=== PATIENT | female | born 1950 | race Caucasian/White ===

== ENCOUNTER 2016-07-02 16:28 | Emergency (ER) | payer MEDICARE, OTHER ==
--- NOTE | 2016-07-02 17:32 | Emergency Department Record ---
History of Present Illness - General Chief Complaint: Cough Stated Complaint: COUGH Time Seen by Provider: 07/02/16 17:31 Source: Patient Mode of Arrival: Ambulatory Limitations: No limitations - History of Present Illness Initial Comments: 66 yo female presents with cough. The onset was three days ago. She has some nasal drainage. The cough is a dry cough at this point in time. No fevers. No chills. She has tried over the counter medications without resolution. No significant sore throat. No chest pain or shortness of breath. No abdominal pain. No edema. No history of smoking or significant underlying lung disease. MD Complaint: Cough Onset/Timin -: Days(s) Consistency: Intermittent Improves With: Nothing Worsens With: Other (worse at night) Associated Symptoms: Cough, Rhinorrhea - Related Data Home Medications Medication Instructions Recorded Confirmed Last Taken Insulin Aspart [Novolog Flexpen] 2 - 6 unit SQ BID PRN 03/02/14 07/02/16 Insulin Glargine,Hum.rec.anlog 60 unit SQ QAM 03/02/14 07/02/16 07/02/16 [Lantus] Lisinopril/Hydrochlorothiazide 1 each PO QAM 03/02/14 07/02/16 07/02/16 [Zestoretic 20-25 mg Tablet] Risedronate Sodium [Actonel] 150 mg PO MONTHLY 03/02/14 07/02/16 06/05/16 Canagliflozin [Invokana] 300 mg PO QAM 07/17/14 07/02/16 07/02/16 Atorvastatin Calcium 10 mg PO DAILY 10/28/14 07/02/16 07/02/16 Naproxen [Naprosyn] 500 mg PO DAILY 10/28/14 07/02/16 05/06/15 Tramadol HCl 50 mg PO Q6H 10/28/14 07/02/16 05/06/15 Previous Rx's Medication Instructions Recorded Hydrocodone/Acetaminophen [[place] 1 tab PO Q6H PRN #15 tab 10/28/14 5mg/325mg] Azithromycin [Zithromax] 250 mg PO DAILY #6 tab 07/02/16 Benzonatate [Tessalon] 1 cap PO Q8H PRN #20 cap 07/02/16 Allergies Allergy/AdvReac Type Severity Reaction Status Date / Time cephalexin monohydrate Allergy RASH Verified 05/09/15 18:45 [From [employer]] Travel Screening - Travel/Exposure Within Last 30 Days Have you traveled within the last 30 days?: No - Travel/Exposure Within Last Year Have you traveled outside the [place] in the last year?: No - Additonal Travel Details Have you been exposed to anyone with a communicable illness?: No - Travel Symptoms Symptom Screening: None Review of Systems Constitutional: Denies: Chills, Fever, Malaise, Weakness Eyes: Denies: Eye discharge ENT: Reports: Congestion. Denies: Ear pain, Throat pain Respiratory: Reports: Cough. Denies: Dyspnea, Hemoptysis, Stridor, Wheezes Cardiovascular: Denies: Chest pain, Palpitations, Syncope Endocrine: Denies: Fatigue Gastrointestinal: Denies: Abdominal pain, Nausea, Vomiting Genitourinary: Denies: Dysuria, Urgency Musculoskeletal: Denies: Arthralgia, Back pain, Myalgia Skin: Denies: Bruising, Change in color, Rash Neurological: Denies: Confusion, Headache Psychiatric: Denies: Anxiety Hematological/Lymphatic: Denies: Blood Clots, Easy bleeding, Easy bruising, Swollen glands Past Medical History - SOCIAL HISTORY Smoking Status: Never smoker Alcohol Use: None Drug Use: None - RESPIRATORY Hx Respiratory Disorders: No - CARDIOVASCULAR Hx Cardio Disorders: Yes Hx Hypertension: Yes - NEURO Hx Neuro Disorders: No - GI Hx GI Disorders: No - Hx Genitourinary Disorders: No - ENDOCRINE Hx Endocrine Disorders: Yes Hx Diabetes: Yes - MUSCULOSKELETAL Hx Musculoskeletal Disorders: Yes Hx Arthritis: Yes (neck) - PSYCH Hx Psych Problems: No - HEMATOLOGY/ONCOLOGY Hx Hematology/Oncology Disorders: No Family Medical History Any Significant Family History?: No Hx Cancer: Mother Hx Diabetes: Mother, Brother/Sister Physical Exam - General General Appearance: Alert, Oriented x3, Cooperative, No acute distress - Head Head exam: Normal inspection - Eye Eye exam: Normal appearance, PERRL. negative: Conjunctival injection, Periorbital swelling - ENT ENT exam: Mucous membranes moist, Normal external ear exam, Normal orophraynx, TM's normal bilaterally Ear exam: Normal external inspection. negative: External canal tenderness Nasal Exam: Discharge. negative: Normal inspection, Active bleeding, Dried blood, Foreign body Mouth exam: Normal external inspection, Tongue normal Teeth exam: Normal inspection. negative: Dental caries Throat exam: Normal inspection. negative: Tonsillar erythema, Tonsillar exudate - Neck Neck exam: Normal inspection, Full ROM. negative: Lymphadenopathy, Tenderness - Respiratory Respiratory exam: Normal lung sounds bilaterally. negative: Respiratory distress, Rhonchi, Stridor, Wheezes - Cardiovascular Cardiovascular Exam: Regular rate, Normal rhythm, Normal heart sounds - Rectal Rectal exam: Deferred - exam: Deferred - Extremities Extremities exam: Normal inspection, Full ROM, Normal capillary refill. negative: Pedal edema, Tenderness - Back Back exam: Reports: Normal inspection, Full ROM. Denies: CVA tenderness (R), CVA tenderness (L), Muscle spasm, Paraspinal tenderness, Rash noted, Tenderness - Neurological Neurological exam: Alert, Normal gait, Oriented X3 - Psychiatric Psychiatric exam: Normal affect, Normal mood. negative: Agitated, Anxious - Skin Skin exam: Dry, Intact, Normal color, Warm Course Vital Signs 07/02/16 17:10 Temperature 98.2 F Pulse Rate 88 Respiratory 16 Rate Blood Pressure 139/61 Pulse Ox 97 - Reevaluation(s) Reevaluation #1: the patient's symptoms are consistent with an infectious cause most likely She is on Lisionpril. I discussed that if this becomes chronic she may need to consider that as the cause. 07/02/16 17:43 Disposition Disposition: Discharge Clinical Impression: Bronchitis Disposition: Home, Self-Care Condition: (1) Good Instructions: Acute Bronchitis (ED) Additional Instructions: Call your doctor for a recheck this week Return if you are worse, fever or any new concerns Prescriptions: Benzonatate [Tessalon] 1 cap PO Q8H PRN #20 cap PRN Reason: Cough Azithromycin [Zithromax] 250 mg PO DAILY #6 tab Forms: Patient Portal Access Time of Disposition: 17:45
[2016-07-02] MEDS ORDERED: BENZONATATE 100 MG CAPSULE PO ONE (17:39)
== END 2016-07-02 17:59 | disposition home or self-care (01) ==
LOC: ER 16:28
DX: J20.9 Acute bronchitis, unspecified (principal); I10 Essential (primary) hypertension
CPT/HCPCS: 99282

== ENCOUNTER 2018-01-10 19:48 | Emergency (ER) | payer MEDICARE, OTHER ==
[2018-01-10] MEDS ORDERED: HYDROMORPHONE HCL 2 MG/ML VIAL IVP ONE ×2 (20:06→22:23)
[2018-01-10] MEDS ORDERED: ONDANSETRON HCL IV 4 MG/2 ML VIAL IVP ONE (20:07)
--- NOTE | 2018-01-10 20:38 | Emergency Department Record ---
History of Present Illness - General Chief Complaint: Fall Injury Stated Complaint: FALL INJURY Time Seen by Provider: 01/10/18 20:04 Source: Patient, Family Mode of Arrival: Ambulatory Limitations: No limitations - History of Present Illness Initial Comments: pts pit bulls ran into her , knocking her down and injuring both knees, the left worse then the right. she denies any other injury. the left knee was hyperextended and is extremely painful MD Complaint: Fall Onset/Timin -: Hour(s) When Fall Occurred: Just prior to arrival Location - Extremities: Left: Knee, Right: Knee Quality: Aching Context: Tripped/slipped Associated Symptoms: Unable to walk - [place] Coma Scale Eye Response: (4) Open spontaneously Motor Response: (6) Obeys commands Verbal Response: (5) Oriented Edda Total: 15 - Related Data Allergies Allergy/AdvReac Type Severity Reaction Status Date / Time cephalexin monohydrate Allergy RASH Verified 05/09/15 18:45 [From [employer]] Travel Screening - Travel/Exposure Within Last 30 Days Have you traveled within the last 30 days?: No Review of Systems Reviewed: No additional complaints except as noted below Constitutional: Reports: As per HPI. Denies: Chills, Fever, Malaise, Night sweats, Weakness, Weight change Eyes: Reports: As per HPI. Denies: Eye discharge, Eye pain, Photophobia, Vision change ENT: Reports: As per HPI. Denies: Congestion, Dental pain, Ear pain, Epistaxis , Hearing loss, Throat pain Respiratory: Reports: As per HPI. Denies: Cough, Dyspnea, Hemoptysis, Stridor, Wheezes Cardiovascular: Reports: As per HPI. Denies: Arrhythmia, Chest pain, Dyspnea on exertion, Edema, Murmurs, Orthopnea, Palpitations, Paroxysmal nocturnal dyspnea, Rheumatic Fever, Syncope Endocrine: Reports: As per HPI. Denies: Fatigue, Heat or cold intolerance, Polydipsia, Polyuria Gastrointestinal: Reports: As per HPI. Denies: Abdominal pain, Constipation, Diarrhea, Hematemesis, Hematochezia, Melena, Nausea, Vomiting Genitourinary: Reports: As per HPI. Denies: Abnormal menses, Discharge, Dyspareunia, Dysuria, Frequency, Hematuria, Incontinence, Retention, Urgency Musculoskeletal: Reports: As per HPI. Denies: Arthralgia, Back pain, Gout, Joint swelling, Myalgia, Neck pain Skin: Reports: As per HPI. Denies: Bruising, Change in color, Change in hair/ nails, Lesions, Pruritus, Rash Neurological: Reports: As per HPI. Denies: Abnormal gait, Confusion, Headache, Numbness, Paresthesias, Seizure, Tingling, Tremors, Vertigo, Weakness Psychiatric: Reports: As per HPI. Denies: Anxiety, Auditory hallucinations, Depression, Homicidal thoughts, Suicidal thoughts, Visual hallucinations Hematological/Lymphatic: Reports: As per HPI. Denies: Anemia, Blood Clots, Easy bleeding, Easy bruising, Swollen glands Past Medical History - SOCIAL HISTORY Smoking Status: Never smoker Alcohol Use: None Drug Use: None - RESPIRATORY Hx Respiratory Disorders: No - CARDIOVASCULAR Hx Cardio Disorders: Yes Hx Hypertension: Yes - NEURO Hx Neuro Disorders: No - GI Hx GI Disorders: No - Hx Genitourinary Disorders: No - ENDOCRINE Hx Endocrine Disorders: Yes Hx Diabetes: Yes - MUSCULOSKELETAL Hx Musculoskeletal Disorders: Yes Hx Arthritis: Yes (neck) - PSYCH Hx Psych Problems: No - HEMATOLOGY/ONCOLOGY Hx Hematology/Oncology Disorders: No Family Medical History Any Significant Family History?: Yes Hx Cancer: Mother Hx Diabetes: Mother, Brother/Sister Physical Exam - General General Appearance: Alert, Oriented x3, Cooperative, Moderate distress - Head Head exam: Normal inspection - Eye Eye exam: Normal appearance, PERRL, EOMI Pupils: Normal accommodation - ENT ENT exam: Normal exam, Mucous membranes moist, Normal external ear exam, Normal orophraynx Ear exam: Normal external inspection. negative: External canal tenderness Nasal Exam: Normal inspection. negative: Discharge, Sinus tenderness Mouth exam: Normal external inspection, Tongue normal Teeth exam: Normal inspection. negative: Dental caries Throat exam: Normal inspection. negative: Tonsillar erythema, Tonsillar exudate - Neck Neck exam: Normal inspection, Full ROM. negative: Tenderness - Respiratory Respiratory exam: Normal lung sounds bilaterally. negative: Respiratory distress - Cardiovascular Cardiovascular Exam: Regular rate, Normal rhythm, Normal heart sounds - GI/Abdominal GI/Abdominal exam: Soft, Normal bowel sounds. negative: Tenderness - Rectal Rectal exam: Deferred - exam: Deferred - Extremities Extremities exam: Normal capillary refill, Tenderness (bilateral knees, l worse then right). negative: Normal inspection, Full ROM - Back Back exam: Reports: Normal inspection, Full ROM. Denies: Muscle spasm, Rash noted, Tenderness - Neurological Neurological exam: Alert, CN II-XII intact, Normal gait, Oriented X3 - Psychiatric Psychiatric exam: Normal affect, Normal mood - Skin Skin exam: Dry, Intact, Normal color, Warm Course Vital Signs 01/10/18 19:53 Pulse Rate [ 92 H Pulse Ox Probe] Respiratory 24 Rate Blood Pressure 128/69 [Left Arm] Pulse Ox 99 Disposition Disposition: Transfer Clinical Impression: Tibia/fibula fracture Qualifiers: Encounter type: initial encounter Fracture type: closed Laterality: left Qualified Code(s): S82.202A - Unspecified fracture of shaft of left tibia, initial encounter for closed fracture; S82.402A - Unspecified fracture of shaft of left fibula, initial encounter for closed fracture Disposition: Acute Care Hospital Transfer Transfer To: [facility] Reason For Transfer: needs orthopedic surgeon Accepting Physician: shelton brice Time Discussed w/Accepting Physician: 22:06 Forms: Patient Portal Access Quality - Quality Measures Quality Measures: N/A - Blood Pressure Screening Does Patient Have Any of the Following: No Blood Pressure Classification: Pre-Hypertensive BP Reading Systolic Measurement: 128 Diastolic Measurement: 69 Screening for High Blood Pressure: < Pre-Hypertensive BP, F/U Documented > [ G8950] Pre-Hypertensive Follow-up Interventions: Follow-up with rescreen every year.
== END 2018-01-10 23:00 | disposition short-term general hospital (02) ==
LOC: ER 19:48
DX: S82.202A Unspecified fracture of shaft of left tibia, initial encounter for closed fracture (principal); S82.402A Unspecified fracture of shaft of left fibula, initial encounter for closed fracture; W18.31XA Fall on same level due to stepping on an object, initial encounter; Y93.9 Activity, unspecified
CPT/HCPCS: 99285 ×2; 96376; 96374; 96375; 73564 ×2; J2405; J1170

== ENCOUNTER 2018-03-06 19:46 | Emergency (ER) | payer MEDICARE, OTHER ==
[2018-03-06] MEDS: 0.9 % SODIUM CHLORIDE 1,000 ML BAG IV ONE ×2 (20:05→21:43)
[2018-03-06] MEDS: ONDANSETRON HCL IV 4 MG/2 ML VIAL IVP ONE (20:05)
--- NOTE | 2018-03-06 20:06 | Emergency Department Record ---
History of Present Illness - General Chief complaint: Nausea, Vomiting, Diarrhea Stated complaint: VOMITING/DIARRHEA Time Seen by Provider: 03/06/18 20:00 Source: Patient Mode of Arrival: Ambulatory Limitations: No limitations - History of Present Illness Initial comments: 68 yo female presents with nausea, vomiting, and diarrhea. The onset was two hours ago. No fever. No pain now. No blood in either vomit or the diarrhea. She had a [employer] hamburger earlier. No other definite sick contacts. No other recent illnesses the last few days. Dr Bardales is her doctor. MD complaint: Diarrhea, Nausea, Vomiting Onset/Timin -: Hour(s) (2) Description of Vomiting: Watery Description of Diarrhea: Water Location: Other Radiation: None Severity: Mild Quality: Cramping Consistency: Intermittent Improves with: None Worsens with: Eating Associated Symptoms: Loss of appetite, Nausea/vomiting, Other (Diarrhea) - Related Data Previous Rx's Medication Instructions Recorded Ondansetron [Zofran Odt] 4 mg PO Q8H #12 tab.rapdis 03/06/18 Allergies Allergy/AdvReac Type Severity Reaction Status Date / Time cephalexin monohydrate Allergy RASH Verified 05/09/15 18:45 [From [employer]] Travel Screening - Travel/Exposure Within Last 30 Days Have you traveled within the last 30 days?: No Review of Systems Constitutional: Denies: Chills, Fever, Weakness Eyes: Denies: Eye discharge, Eye pain, Vision change ENT: Denies: Congestion, Throat pain Respiratory: Denies: Cough, Dyspnea, Hemoptysis, Wheezes Cardiovascular: Denies: Chest pain, Palpitations, Syncope Endocrine: Denies: Fatigue Gastrointestinal: Reports: Diarrhea, Nausea, Vomiting. Denies: Hematemesis, Hematochezia Genitourinary: Denies: Dysuria, Urgency Musculoskeletal: Denies: Arthralgia, Back pain, Myalgia Skin: Denies: Bruising, Change in color, Rash Neurological: Denies: Confusion Psychiatric: Denies: Anxiety Hematological/Lymphatic: Denies: Blood Clots, Easy bleeding, Easy bruising, Swollen glands Past Medical History - SOCIAL HISTORY Smoking Status: Never smoker Alcohol Use: None Drug Use: None - RESPIRATORY Hx Respiratory Disorders: No - CARDIOVASCULAR Hx Cardio Disorders: Yes Hx Hypertension: Yes - NEURO Hx Neuro Disorders: No - GI Hx GI Disorders: No - Hx Genitourinary Disorders: No - ENDOCRINE Hx Endocrine Disorders: Yes Hx Diabetes: Yes - MUSCULOSKELETAL Hx Musculoskeletal Disorders: Yes Hx Arthritis: Yes (neck) - PSYCH Hx Psych Problems: No - HEMATOLOGY/ONCOLOGY Hx Hematology/Oncology Disorders: No Family Medical History Any Significant Family History?: Yes Hx Cancer: Mother Hx Diabetes: Mother, Brother/Sister Physical Exam - General General Appearance: Alert, Oriented x3, Cooperative, No acute distress Limitations: No limitations - Head Head exam: Normal inspection - Eye Eye exam: Normal appearance. negative: Conjunctival injection, Scleral icterus - ENT ENT exam: Normal exam, Mucous membranes moist Ear exam: Normal external inspection Nasal Exam: Normal inspection Mouth exam: Normal external inspection - Neck Neck exam: Normal inspection - Respiratory Respiratory exam: Normal lung sounds bilaterally. negative: Respiratory distress - Cardiovascular Cardiovascular Exam: Regular rate, Normal rhythm, Normal heart sounds - GI/Abdominal GI/Abdominal exam: Soft. negative: Distended, Guarding, Rebound, Rigid, Tenderness - Rectal Rectal exam: Deferred - exam: Deferred - Extremities Extremities exam: Normal inspection. negative: Tenderness - Back Back exam: Denies: CVA tenderness (R), CVA tenderness (L) - Neurological Neurological exam: Alert, Oriented X3 - Psychiatric Psychiatric exam: Normal affect, Normal mood - Skin Skin exam: Dry, Intact, Normal color, Warm Course Vital Signs 03/06/18 19:50 Temperature 98.3 F Pulse Rate 131 H Respiratory 20 Rate Blood Pressure 122/66 Pulse Ox 95 - Reevaluation(s) Reevaluation #1: 03/06/18 21:25 The labs were reviewed. The patient reports no nausea, pain or return of diarrhea Her abdomen on examination is very soft and non tender 03/06/18 23:23 The patient is tolerating PO fluids now for a few hours without pain or nausea. She has only had one episode of diarrhea. Her abdomen remains very soft and non tender We discussed home care, reasons to return, and close follow up Medical Decision Making - Lab Data Result diagrams: 03/06/18 20:15 03/06/18 20:15 Disposition Disposition: Discharge Clinical Impression: Vomiting and diarrhea Disposition: Home, Self-Care Condition: (1) Good Instructions: Acute Nausea and Vomiting (ED), Acute Diarrhea (ED) Additional Instructions: [place] diet, stay hydrated Return if you have any abdominal pain, any fever, or any vomiting You must return if you stop or slow down your drinking Prescriptions: Ondansetron [Zofran Odt] 4 mg PO Q8H #12 tab.rapdis Forms: Patient Portal Access Time of Disposition: 23:25 Quality - Quality Measures Quality Measures: N/A - Blood Pressure Screening Does Patient Have Any of the Following: No Blood Pressure Classification: Pre-Hypertensive BP Reading Systolic Measurement: 133 Diastolic Measurement: 69 Screening for High Blood Pressure: < Pre-Hypertensive BP, F/U Documented > [ G8950] Pre-Hypertensive Follow-up Interventions: Referral to alternative/primary care provider.
[2018-03-06 20:31] LABS: BASO % 0.2 % (0-6); EOS % 0.6 % (0-6); HEMATOCRIT 45.5 % (35.0-47.0); HEMOGLOBIN 14.9 gm/dl (11.6-16.0); LYMPH % 5.4 % (16-45); MEAN CELL VOLUME 81.4 fl (81-97); MEAN CORPUSCULAR HGB CONC 32.7 g/dl (32-36); MEAN PLATELET VOLUME 9.3 fl (7.4-10.4); MONO % 5.6 % (0-9); PLATELET COUNT 292 K/uL (130-400); RED BLOOD COUNT 5.59 M/uL (3.80-5.40); WHITE BLOOD COUNT W/O DIFF 10.8 K/uL (4.2-12.2)
[2018-03-06 20:33] LABS: MEAN CORPUSCULAR HEMOGLOBIN 26.6 pg (27-33)
[2018-03-06 20:40] LABS: BLOOD UREA NITROGEN 14 mg/dL (8-23); CREATININE 0.6 mg/dL (0.5-0.9); EST GLOMERULAR FILTRATION RATE > 60 mL/min
[2018-03-06 20:43] LABS: GLUCOSE,RANDOM 111 mg/dL (74-109)
[2018-03-06 20:46] LABS: ALB/GLOB RATIO 1.7 (1.1-1.8); ALKALINE PHOSPHATASE 104 U/L (35-104); ALT/SGPT 33 U/L (<33); AST/SGOT 28 U/L (10.0-35.0); LIPASE 30 U/L (13-60)
[2018-03-06 20:52] LABS: ANISOCYTOSIS 1+; PLATELET ESTIMATE NORMAL (NORMAL)
[2018-03-06] MEDS: LOPERAMIDE 2 MG CAPSULE PO ONE (23:04)
[2018-03-06] MEDS: ONDANSETRON 4 MG ODT TABLET SL ONE (23:35)
[2018-03-06] MEDS: ACETAMINOPHEN 325 MG TAB PO ONE (23:36)
== END 2018-03-06 23:48 | disposition home or self-care (01) ==
LOC: ER 19:46
DX: R11.2 Nausea with vomiting, unspecified (principal); R19.7 Diarrhea, unspecified; I10 Essential (primary) hypertension
CPT/HCPCS: 99284 ×2; 96374; 96361; 83690; 80053; 85027; J2405; J7030

== ENCOUNTER 2019-03-04 07:22 | Emergency (ER) | payer MEDICARE, OTHER ==
--- NOTE | 2019-03-04 07:56 | Emergency Department Record ---
History of Present Illness - General Chief complaint: Nausea, Vomiting, Diarrhea Stated complaint: DIARRHEA Time Seen by Provider: 03/04/19 07:38 Source: Patient, RN notes reviewed Mode of Arrival: Ambulatory - History of Present Illness Initial comments: diarrhea times four 2 days ago , times four yesterday and she took peptobismal has turned her stool black and she was concened about her black stool. No abdominal pain, no vomiting and she is still eating and drinking. PMH DM, insulin, osteoporosis and glaucoma. No NSAID no aspirin. Patient thinks she ate bad candy complaint: Diarrhea Onset/Timin -: Days(s) Description of Diarrhea: Water Associated Abdominal Pain: No Associated Symptoms: Weakness - Related Data Allergies Allergy/AdvReac Type Severity Reaction Status Date / Time cephalexin monohydrate Allergy RASH Verified 03/04/19 07:33 [From [employer]] Travel Screening - Travel/Exposure Within Last 30 Days Have you traveled within the last 30 days?: No - Travel/Exposure Within Last Year Have you traveled outside the [place] in the last year?: No - Additonal Travel Details Have you been exposed to anyone with a communicable illness?: No - Travel Symptoms Symptom Screening: None Review of Systems Reviewed: No additional complaints except as noted below Constitutional: Reports: As per HPI. Denies: Chills, Fever, Malaise, Night sweats, Weakness, Weight change Eyes: Reports: As per HPI. Denies: Eye discharge, Eye pain, Photophobia, Vision change ENT: Reports: As per HPI. Denies: Congestion, Dental pain, Ear pain, Epistaxis, Hearing loss, Throat pain Respiratory: Reports: As per HPI. Denies: Cough, Dyspnea, Hemoptysis, Stridor, Wheezes Cardiovascular: Reports: As per HPI. Denies: Arrhythmia, Chest pain, Dyspnea on exertion, Edema, Murmurs, Orthopnea, Palpitations, Paroxysmal nocturnal dyspnea, Rheumatic Fever, Syncope Endocrine: Reports: As per HPI. Denies: Fatigue, Heat or cold intolerance, Polydipsia, Polyuria Gastrointestinal: Reports: As per HPI, Diarrhea. Denies: Abdominal pain, Constipation, Hematemesis, Hematochezia, Melena, Nausea, Vomiting Genitourinary: Reports: As per HPI. Denies: Abnormal menses, Discharge, Dyspareunia, Dysuria, Frequency, Hematuria, Incontinence, Retention, Urgency Musculoskeletal: Reports: As per HPI. Denies: Arthralgia, Back pain, Gout, Joint swelling, Myalgia, Neck pain Skin: Reports: As per HPI. Denies: Bruising, Change in color, Change in hair/nails, Lesions, Pruritus, Rash Neurological: Reports: As per HPI. Denies: Abnormal gait, Confusion, Headache, Numbness, Paresthesias, Seizure, Tingling, Tremors, Vertigo, Weakness Psychiatric: Reports: As per HPI. Denies: Anxiety, Auditory hallucinations, Depression, Homicidal thoughts, Suicidal thoughts, Visual hallucinations Hematological/Lymphatic: Reports: As per HPI. Denies: Anemia, Blood Clots, Easy bleeding, Easy bruising, Swollen glands Past Medical History - SOCIAL HISTORY Smoking Status: Never smoker Alcohol Use: None Drug Use: None - RESPIRATORY Hx Respiratory Disorders: No - CARDIOVASCULAR Hx Cardio Disorders: Yes Hx Hypertension: Yes - NEURO Hx Neuro Disorders: No - GI Hx GI Disorders: No - Hx Genitourinary Disorders: No - ENDOCRINE Hx Endocrine Disorders: Yes Hx Diabetes: Yes - MUSCULOSKELETAL Hx Musculoskeletal Disorders: Yes Hx Arthritis: Yes (neck) - PSYCH Hx Psych Problems: No - HEMATOLOGY/ONCOLOGY Hx Hematology/Oncology Disorders: No Family Medical History Any Significant Family History?: Yes Hx Cancer: Mother Hx Diabetes: Mother, Brother/Sister Physical Exam - General General Appearance: Alert, Oriented x3, Cooperative, No acute distress - Head Head exam: Normal inspection - Eye Eye exam: Normal appearance, PERRL Pupils: Normal accommodation - ENT ENT exam: Normal exam, Mucous membranes moist, Normal external ear exam, Normal orophraynx, TM's normal bilaterally Ear exam: Normal external inspection. negative: External canal tenderness Nasal Exam: Normal inspection. negative: Discharge, Sinus tenderness Mouth exam: Normal external inspection, Tongue normal Teeth exam: Normal inspection. negative: Dental caries Throat exam: Normal inspection. negative: Tonsillar erythema, Tonsillar exudate - Neck Neck exam: Normal inspection, Full ROM. negative: Tenderness - Respiratory Respiratory exam: Normal lung sounds bilaterally. negative: Respiratory distress - Cardiovascular Cardiovascular Exam: Regular rate, Normal rhythm, Normal heart sounds - GI/Abdominal GI/Abdominal exam: Soft, Normal bowel sounds. negative: Tenderness - Rectal Rectal exam: Deferred - exam: Deferred - Extremities Extremities exam: Normal inspection, Full ROM, Normal capillary refill. negative: Tenderness - Back Back exam: Reports: Normal inspection, Full ROM. Denies: Muscle spasm, Rash noted, Tenderness - Neurological Neurological exam: Alert, Normal gait, Oriented X3, Reflexes normal - Psychiatric Psychiatric exam: Normal affect, Normal mood - Skin Skin exam: Dry, Intact, Normal color, Warm Course Vital Signs 03/04/19 03/04/19 07:32 07:36 Temperature 97.7 F 97.7 F Pulse Rate 102 H Pulse Rate [ 102 H Right] Respiratory 20 20 Rate Blood Pressure 144/66 [Left Arm] Pulse Ox 98 98 Medical Decision Making - Lab Data Result diagrams: 03/04/19 08:15 03/04/19 08:15 Disposition Clinical Impression: Diarrhea Qualifiers: Diarrhea type: infectious Qualified Code(s): A09 - Infectious gastroenteritis and colitis, unspecified Disposition: Home, Self-Care Condition: (1) Good Instructions: Acute Diarrhea (ED) Additional Instructions: stop peptobismal drink lots of fluid and eat bland food follow up with family Dr in 5-6 days Forms: Patient Portal Access Time of Disposition: 08:54 Quality - Quality Measures Quality Measures: N/A - Blood Pressure Screening Does Patient Have Any of the Following: No, Active Dx of HTN Blood Pressure Classification: Hypertensive Reading Systolic Measurement: 144 Diastolic Measurement: 66 Screening for High Blood Pressure: Patient Exclusion, Hx of HTN [G9744]
[2019-03-04 08:22] LABS: ABSOLUTE NEUTROPHIL COUNT 2.78; BASO % 0.4 % (0-6); EOS % 1.5 % (0-6); GRAN % 59.8 % (47-80); HEMATOCRIT 41.2 % (35.0-47.0); HEMOGLOBIN 14.1 gm/dl (11.6-16.0); LYMPH % 25.8 % (16-45); MEAN CELL VOLUME 79.4 fl (81-97); MEAN CORPUSCULAR HEMOGLOBIN 27.2 pg (27-33); MEAN CORPUSCULAR HGB CONC 34.2 g/dl (32-36); MEAN PLATELET VOLUME 9.2 fl (7.4-10.4); MONO % 12.5 % (0-9); PLATELET COUNT 194 K/uL (130-400); RED BLOOD COUNT 5.19 M/uL (3.80-5.40); RED CELL DISTRIBUTION WIDTH 13.5 % (11.5-14.5); WHITE BLOOD COUNT W/O DIFF 4.7 K/uL (4.2-12.2)
[2019-03-04 08:34] LABS: BLOOD UREA NITROGEN 25 mg/dL (8-23); CREATININE 0.6 mg/dL (0.5-0.9); EST GLOMERULAR FILTRATION RATE > 60 mL/min
[2019-03-04 08:37] LABS: GLUCOSE,RANDOM 207 mg/dL (74-109)
== END 2019-03-04 09:08 | disposition home or self-care (01) ==
LOC: ER 07:22
DX: A09 Infectious gastroenteritis and colitis, unspecified (principal); R53.1 Weakness; E11.9 Type 2 diabetes mellitus without complications; Z79.4 Long term (current) use of insulin; I10 Essential (primary) hypertension
CPT/HCPCS: 80048; 85025; 99283